=== PATIENT | female | born 1945 | race Caucasian/White ===

== ENCOUNTER 2019-04-10 08:16 | Emergency (ER) | payer OTHER, SELFPAY ==
[2019-04-10] VITALS (7 sets, daily range): BP systolic 158–160; BP diastolic 87–96; PULSE 100–108; RESP 20–36; TEMP 37.2; O2SAT 93–96
--- NOTE | 2019-04-10 | XR_ITS ---
WS: [id number] Chest with left rib detail, 04/10/2019 Clinical Data: Fall, l rib pain, dyspnea, COPD Comparison: Portable chest, 02/18/2019. Findings: The lungs show no nodules, masses, or effusions. The heart is normal. No pneumonia or pneumothorax is seen. The diaphragms are flattened. The aortic arch and descending aorta show tortuosity. The ribs are intact. No rib fractures seen. No subcutaneous emphysema is present. Vertebral plasties have been performed at the L3 and L4 vertebral bodies. XR/XR ribs LT mn 3V w CXR1V [id number] Impression: 1. Negative left rib detail. 2. Hyperinflation.
--- NOTE | 2019-04-10 08:20 | ED_ITS ---
Entered by Elaine Kong, acting as scribe for Agus Carlos DO HPI - Fall General: Chief Complaint: Fall Stated Complaint: fall Time Seen by Provider: 04/10/19 08:20 Source: EMS Mode of arrival: EMS Limitations: no limitations History of Present Illness: HPI Narrative: 73 yo f came to the er by ems for a fall, nausea, vomiting and cough. Onset was today. Ems states that the pt got up to go to the bathroom without o2 and fell in the bathroom. Pt has had some nausea and vomiting and a productive cough. Pt is a Hospice pt. MD complaint: fall Onset (ago): day(s) (today) Fall from: standing Fall witnessed: no Place fall occurred: home Loss of consciousness: Unsure Location of injury: back Location of injury - extremities: Right: arm (forarm ) Severity: mild Quality: sharp and other (pain) Associated symptoms-after fall: Denies abdominal pain or chest pain Review of Systems Const: Denies: fever, chills, body aches, change in appetite, fatigue or malaise ENMT: Denies: throat pain, ear pain, nasal discharge or nasal congestion Card: Denies: chest pain Resp: Denies: shortness of breath or non-productive cough GI: Reports: nausea and vomiting; Denies: abdominal pain : Denies: flank pain, difficulty urinating, painful urination, urinary frequency or urinary urgency Skin/Breast: Denies: rash or itching Physical Exam Const: COMMON NORMALS: no apparent distress GENERAL APPEARANCE: cooperative and comfortable ORIENTATION/CONSCIOUSNESS: Yes awake, Yes oriented to person, Yes oriented to place and Yes oriented to time HENMT: COMMON NORMALS: normocephalic, head/scalp atraumatic, hearing grossly normal bilaterally, external ears normal, EAC's normal, TM's normal bilaterally, nasal mucous membranes and turbinates normal, moist oral mucous membranes and oropharynx normal HEAD & SCALP: normocephalic and atraumatic NOSE: nasal mucous membranes and turbinates normal EXTERNAL EAR: Yes external ears normal EXTERNAL AUDITORY CANAL: EAC's normal TYMPANIC MEMBRANE: TM's normal bilaterally Eye: COMMON NORMALS: PERRL, EOMs intact bilaterally, conjunctivae normal and no scleral icterus CONJUNCTIVA: Yes conjunctivae normal PUPIL: Yes PERRL Neck/C-Spine: COMMON NORMALS: full ROM, no lymphadenopathy, supple and no JVD Lymph: LYMPHATIC: no lymphadenopathy noted and no lymphedema noted Resp: COMMON NORMALS: normal respiratory effort, no retractions, no use of accessory muscles and clear to auscultation bilaterally AUSCULTATION: clear to auscultation bilaterally Cardio: COMMON NORMALS: no JVD, regular rate, regular rhythm and no murmurs RATE: regular rate RHYTHM: regular rhythm Extremity: COMMON NORMALS: normal to inspection, normal capillary refill, no clubbing, cyanosis or edema, no calf tenderness and no pedal edema Neuro: SENSORIUM/ORIENTATION: Yes oriented to person, Yes oriented to place and Yes oriented to time Skin: COMMON NORMALS: no rashes or lesions noted GENERAL SKIN EXAM: no rashes or lesions noted Course Vital Signs: Vital signs: Vital Signs Temperature 98.9 F 04/10/19 08:18 Pulse Rate 104 H 04/10/19 09:33 Respiratory Rate 25 H 04/10/19 09:33 Blood Pressure 158/96 04/10/19 09:33 Pulse Oximetry 94 04/10/19 09:33 MDM - Fall Lab Data: Labs: Lab Results 04/10/19 04/10/19 Range/Units 08:00 08:00 WBC 16.7 H (4.0-10.0) 10^3/ uL RBC 4.11 (4.1-5.3) 10^6/u L Hgb 12.0 (11.5-15.3) g/dL Hct 40.2 (37.0-47.0) % MCV 97.8 (81-99) fL MCH 29.2 (28.0-34.0) pg MCHC 29.9 L (30.0-36.0) g/dL RDW 12.4 (12.1-15.1) % Plt Count 580 H (130-400) 10^3/c mm MPV 8.6 (7.4-10.4) fL Neut % (Auto) 69.5 % Lymph % (Auto) 21.1 % Elliott % (Auto) 7.2 % Eos % (Auto) 1.0 % Baso % (Auto) 0.4 % Neut # (Auto) 11.6 H (1.8-7.7) 10^3/u L Lymph # (Auto) 3.5 (0.8-4.8) 10^3/u L Elliott # (Auto) 1.2 H (0.2-0.9) 10^3/u L Eos # (Auto) 0.2 (0.0-0.8) 10^3/u L Baso # (Auto) 0.1 (0.0-0.1) 10^3/u L Nucleated RBC % (a uto) 0 % Nucleated RBCs # 0.0 /100WBC Sodium 138 (136-145) mmol/L Potassium 4.0 (3.5-5.1) mmol/L Chloride 91 L (98-107) mmol/L Carbon Dioxide 35 H (22-29) mmol/L Anion Gap 16.0 (5-19) BUN 12 (8-23) mg/dL Creatinine 0.4 L (0.5-0.9) mg/dL Glucose 132 H (74-106) mg/dL Calcium 10.5 H (8.8-10.2) mg/Dl Total Bilirubin 0.2 (0.15-1.2) mg/dL AST 13 (0-32) U/L ALT 7 (0-33) U/L Alkaline Phosphata se 135 H (35-105) IU/L Total Protein 7.5 (6.6-8.7) g/dL Albumin 3.7 (3.5-5.2) g/dL Globulin 3.8 (1.3-4.6) g/dL Imaging Data^: Other Xray: Radiologist's impression: [place] [address] XRay Report Signed Patient: Beatrice Sloan LMR#: [id number] : 6Acct:[id number] Age/Sex: 73 / FADM Date: 04/10/19 Loc: ER Attending Dr: Ordering Physician: Agus Carlos DO Date of Service: 04/10/19 Procedure(s): XR ribs LT mn 3V w CXR1V [id number] Accession Number(s): [id number] Report Number: [id number] WS: [id number] Chest with left rib detail, 04/10/2019 Clinical Data: Fall, l rib pain, dyspnea, COPD Comparison: Portable chest, 02/18/2019. Findings: The lungs show no nodules, masses, or effusions. The heart is normal. No pneumonia or pneumothorax is seen. The diaphragms are flattened. The aortic arch and descending aorta show tortuosity. The ribs are intact. No rib fractures seen. No subcutaneous emphysema is present. Vertebral plasties have been performed at the L3 and L4 vertebral bodies. XR/XR ribs LT mn 3V w CXR1V [id number] Impression: 1. Negative left rib detail. 2. Hyperinflation. Dictated By:Nisha Valenzuela MD Discharge Plan Discharge Patient Disposition: Home, Self-Care Clinical Impression: COPD (chronic obstructive pulmonary disease), Fall, Pain in rib Condition: Stable Prescriptions: No Action multivitamin Tablet 1 tab PO DAILY RF: 0 Tylenol 325 mg Tablet 650 mg PO DAILY PRN (Reason: Pain) RF: 0 donepezil 5 mg Tablet 5 mg PO DAILY RF: 0 albuterol sulfate 2.5 mg /3 mL (0.083 %) Solution For Nebulization 2.5 mg INHALATION Q4H PRN (Reason: Shortness Of Breath) RF: 0 tizanidine 4 mg Tablet 4 mg PO TID RF: 0 Senna-S 8.6-50 mg Tablet 1 tab PO BID RF: 0 prednisone 5 mg Tablet 5 mg PO DAILY RF: 0 Plavix 75 mg Tablet 75 mg PO DAILY RF: 0 Aspir-81 81 mg Tablet,Delayed Release (Dr/Ec) 81 mg PO DAILY RF: 0 Xanax 0.25 mg Tablet 0.25 mg PO Q8H PRN (Reason: Anxiety) RF: 0 magnesium hydroxide [Milk of Magnesia] 400 mg/5 mL Suspension 30 ml PO DAILY PRN (Reason: Constipation) RF: 0 bisacodyl 10 mg Suppository 10 mg AR DAILY PRN (Reason: Constipation) RF: 0 Paxil 30 mg Tablet 30 mg PO DAILY RF: 0 Protonix 40 mg Tablet,Delayed Release (Dr/Ec) 40 mg PO DAILY RF: 0 Advair Diskus 500-50 mcg/dose Blister With Device 1 inh INHALATION BID RF: 0 Enema 19-7 gram/118 mL Enema 118 ml AR DAILY PRN (Reason: Constipation) RF: 0 Pulmicort 0.5 mg/2 mL Suspension For Nebulization 0.5 mg INHALATION BID RF: 0 folic acid 1 mg Tablet 1 mg PO DAILY RF: 0 Singulair 10 mg Tablet 10 mg PO DAILY RF: 0 morphine 15 mg Tablet Extended Release 15 mg PO BID RF: 0 metoprolol succinate 25 mg Tablet Extended Release 24 Hr 25 mg PO DAILY RF: 0 Ventolin HFA 90 mcg/actuation Hfa Aerosol Inhaler 2 puff INHALATION Q4H PRN (Reason: Shortness Of Breath) RF: 0 Spiriva with HandiHaler 18 mcg Capsule, W/Inhalation Device 1 cap INHALATION DAILY RF: 0 Icy Hot 30-10 % Cream See Rx Instructions .ROUTE .COMPLEX RF: 0 TwoCal HN 0.08-2 gram-kcal/mL Liquid See Rx Instructions .ROUTE .COMPLEX RF: 0 Daliresp 500 mcg Tablet 500 mcg PO DAILY RF: 0 Discharge Orders: Discharge Order (Routine); Ordered 04/10/19 Ordered By: Agus Carlos Referrals: Chance Herman Jr, MD [Primary Care Provider] - Discharge Diet: Usual diet Discharge Activity: Increase activity as tolerated Discharge Date/Time: 04/10/19 11:23 Coding Level of Care Code ED Scroll Assembler for Chg Fwd Exam Problem Focused The documentation recorded by the Dilan hua Stephanie Lyn, accurately reflects the service I personally performed and the decisions made by Terrance shah Curtis L, DO Apr 10, 2019 08:16
--- NOTE | 2019-04-10 08:28 | XR_ITS ---
WS: [id number] Chest with left rib detail, 04/10/2019 Clinical Data: Fall, l rib pain, dyspnea, COPD Comparison: Portable chest, 02/18/2019. Findings: The lungs show no nodules, masses, or effusions. The heart is normal. No pneumonia or pneumothorax is seen. The diaphragms are flattened. The aortic arch and descending aorta show tortuosity. The ribs are intact. No rib fractures seen. No subcutaneous emphysema is present. Vertebral plasties have been performed at the L3 and L4 vertebral bodies.
[2019-04-10 08:43] LABS: Basophils # 0.1 10^3/uL (0.0-0.1); Basophils % 0.4 %; Eosinophils # 0.2 10^3/uL (0.0-0.8); Hematocrit 40.2 % (37.0-47.0); Lymphocytes # 3.5 10^3/uL (0.8-4.8); Lymphocytes % 21.1 %; Mean Corpuscular HGB Conc 29.9 g/dL (30.0-36.0); Mean Corpuscular Hemoglobin 29.2 pg (28.0-34.0); Mean Corpuscular Volume 97.8 fL (81-99); Mean Platelet Volume 8.6 fL (7.4-10.4); Monocytes # 1.2 10^3/uL (0.2-0.9); Monocytes % 7.2 %; Neutrophils # 11.6 10^3/uL (1.8-7.7); Neutrophils % 69.5 %; Nucleated Red Blood Cells % 0 %; Platelet Count 580 10^3/cmm (130-400); Red Blood Count 4.11 10^6/uL (4.1-5.3); Red Cell Distribution Width 12.4 % (12.1-15.1); White Blood Count 16.7 10^3/uL (4.0-10.0)
[2019-04-10 08:57] LABS: Alanine Aminotransferase 7 U/L (0-33); Albumin Level 3.7 g/dL (3.5-5.2); Alkaline Phosphatase 135 IU/L (35-105); Aspartate Amino Transferase 13 U/L (0-32); Blood Urea Nitrogen 12 mg/dL (8-23); Calcium 10.5 mg/Dl (8.8-10.2); Carbon Dioxide 35 mmol/L (22-29); Chloride 91 mmol/L (98-107); Globulin 3.8 g/dL (1.3-4.6); Glucose 132 mg/dL (74-106); Sodium 138 mmol/L (136-145); Total Bilirubin 0.2 mg/dL (0.15-1.2); Total Protein 7.5 g/dL (6.6-8.7)
[2019-04-10] MEDS: ipratropium-albuterol 3 mL Neb INHALATION (09:01)
[2019-04-10] MEDS: sodium chloride 0.9% 500 ML IV (09:09)
[2019-04-10] MEDS: ondansetron 2 mg/ML SDV 2 mL 4 MG IVP (09:09)
[2019-04-10] MEDS: morphine 4 mg/mL SDV 1 mL IVP (09:10)
--- NOTE | 2019-04-10 09:35 | PC.NURSE ---
Water to pt, per Dr. Carlos's okay.
--- NOTE | 2019-04-10 10:21 | PC.NURSE ---
Pt not being D/C yet d/t no oxygen device for pt to go home on. Son left to get oxygen for the pt's ride home. Will return.
== END 2019-04-10 11:23 | disposition home or self-care (01) ==
PROVIDERS: Emergency Provider Family Medicine; PCP Family Medicine
DX: J44.9 Chronic obstructive pulmonary disease, unspecified (principal); R07.81 Pleurodynia; Z79.82 Long term (current) use of aspirin; Z79.02 Long term (current) use of antithrombotics/antiplatelets
CPT/HCPCS: 71101; 80053; 85025; 94640; 96360; 96374; 96375; 99282; J2270; J2405; J7040